=== PATIENT | male | born 1975 | race Caucasian/White ===

== ENCOUNTER → 2022-08-04 | Outpatient (CLI) | payer OTHER | LOC: CARD 10:36 | PROVIDERS: ATTEND Physician Assistant | DX: I10 Essential (primary) hypertension (principal); E78.2 Mixed hyperlipidemia | CPT/HCPCS: 93306 ==

== ENCOUNTER 2022-08-05 19:38 | Outpatient (CLI) | payer OTHER | END 2022-08-06 06:00 | disposition home or self-care (01) | LOC: SLEEP 19:38 | PROVIDERS: ATTEND Nurse Practitioner | DX: G47.33 Obstructive sleep apnea (adult) (pediatric) (principal); G47.10 Hypersomnia, unspecified; I10 Essential (primary) hypertension; G47.61 Periodic limb movement disorder | CPT/HCPCS: 95811 ==